=== PATIENT | female | born 1935 | race Caucasian/White ===

== ENCOUNTER 2023-01-31 09:36 | Inpatient (IN) | payer MEDICARE, OTHER ==
[~2023-01-31] VITALS: Ht 152.4 cm; Wt 59.0 kg
[2023-01-31] MEDS ORDERED: BLOOD SUGAR DIAGNOSTIC 1 EACH STRIP IN ONE (12:30)
[2023-01-31] MEDS ORDERED: MAG HYDROX/AL HYDROX/SIMETH 30 ML UDC PO PRN (12:30)
[2023-01-31] MEDS ORDERED: MAGNESIUM HYDROXIDE 30 ML UDC PO PRN (12:30)
[2023-01-31] MEDS ORDERED: TEMAZEPAM 7.5 MG CAPSULE PO PRN (12:30)
[2023-01-31] MEDS ORDERED: ACETAMINOPHEN 325 MG TABLET PO PRN (12:30)
[2023-01-31] MEDS ORDERED: DEXTROSE 50%-WATER 50 ML DISP.SYRIN IV PRN (13:00)
[2023-01-31] MEDS ORDERED: CELE100C PO (13:23)
[2023-01-31] MEDS ORDERED: RALO60TA14 PO (13:23)
[2023-01-31] MEDS ORDERED: GABA-532 PO (13:23)
[2023-01-31] MEDS ORDERED: ESOM20CA PO (13:23)
[2023-01-31] MEDS ORDERED: CHOL100043 PO (13:23)
[2023-01-31] MEDS ORDERED: SITA100T PO (13:23)
[2023-01-31] MEDS: clonazePAM 0.5 MG TABLET PO PRN (14:21)
[2023-01-31 16:00] VITALS: BP 100/69; TEMP 98.1; O2SAT 97
[2023-01-31] MEDS ORDERED: METOPROLOL PO (17:22)
[2023-01-31] MEDS ORDERED: [UNRECOGNIZED DRUG - OTHER] (17:23)
[2023-01-31] MEDS: BLOOD SUGAR DIAGNOSTIC 1 EACH STRIP IN SCH ×2 (17:23→21:52)
[2023-01-31] MEDS: INSULIN REGULAR, HUMAN 100 UNIT/ML 3 ML VIAL SQ PRN ×2 (17:26→21:59)
[2023-01-31] MEDS ORDERED: ACET325C7 PO (17:57)
[2023-01-31] MEDS ORDERED: ATOR40TA PO (17:57)
[2023-01-31 20:00] VITALS: BP 115/71; TEMP 98.2; O2SAT 98
[2023-01-31 21:37] VITALS: BP 115/71; TEMP 97.2; O2SAT 98
[2023-02-01 08:00] VITALS: BP 129/69; TEMP 97.9; O2SAT 98
[2023-02-01] MEDS: BLOOD SUGAR DIAGNOSTIC 1 EACH STRIP IN SCH ×4 (08:10→21:29)
[2023-02-01 08:17] LABS: CHOLESTEROL 157 mg/dL (<200); HDL CHOLESTEROL 51 mg/dL (40-60); LDL 83 mg/dL (0-99); TRIGLYCERIDES 179 mg/dL (30-150)
[2023-02-01 08:28] LABS: ALANINE AMINOTRANSFERASE 31 U/L (12-78); ALBUMIN 3.2 g/dL (3.4-5.0); ALKALINE PHOSPHATASE 87 U/L (46-116); ASPARTATE AMINOTRANSFERASE 24 U/L (15-37); BILIRUBIN,TOTAL 0.4 mg/dL (0.2-1.0); CALCIUM, SERUM 8.8 mg/dL (8.5-10.1); CARBON DIOXIDE 24 mmol/L (21-32); CHLORIDE 105 mmol/L (98-107); GLUCOSE 208 mg/dL (74-106); POTASSIUM 3.9 mmol/L (3.5-5.1); SODIUM SERUM 138 mmol/L (136-145); TOTAL PROTEIN, SERUM 6.8 g/dL (6.4-8.2); UREA NITROGEN, BLOOD 16 mg/dL (7-18)
[2023-02-01] MEDS: INSULIN REGULAR, HUMAN 100 UNIT/ML 3 ML VIAL SQ PRN ×3 (10:41→21:37)
[2023-02-01 16:00] VITALS: BP 144/76; TEMP 97.9; O2SAT 96
[2023-02-01] MEDS ORDERED: METFORMIN 500 MG TABLET PO SCH (17:00)
[2023-02-01] MEDS: CEPHALEXIN MONOHYDRATE 250 MG CAPSULE PO SCH ×2 (17:56→23:15)
[2023-02-01 20:00] VITALS: BP 142/71; TEMP 97.5; O2SAT 97
[2023-02-01] MEDS: clonazePAM 0.5 MG TABLET PO PRN (21:03)
[2023-02-01] MEDS: OLANZAPINE 2.5 MG TABLET PO SCH (21:09)
[2023-02-02] MEDS: CEPHALEXIN MONOHYDRATE 250 MG CAPSULE PO SCH ×3 (05:40→18:40)
[2023-02-02 08:00] VITALS: BP 110/59; TEMP 97.9; O2SAT 98
[2023-02-02] MEDS: BLOOD SUGAR DIAGNOSTIC 1 EACH STRIP IN SCH ×3 (08:14→21:55)
[2023-02-02] MEDS: INSULIN REGULAR, HUMAN 100 UNIT/ML 3 ML VIAL SQ PRN ×2 (08:37→21:47)
[2023-02-02 16:00] VITALS: BP 140/78; TEMP 98; O2SAT 96
[2023-02-02] MEDS: GABAPENTIN 100 MG CAPSULE PO SCH (18:40)
[2023-02-02 20:00] VITALS: BP 137/72; TEMP 97.8; O2SAT 96
[2023-02-02] MEDS: LINAGLIPTIN 5 MG TABLET PO SCH (21:14)
[2023-02-02] MEDS: ATORVASTATIN 40 MG TABLET PO SCH (21:16)
[2023-02-02] MEDS: OLANZAPINE 2.5 MG TABLET PO SCH (21:16)
[2023-02-02] MEDS: METOPROLOL TARTRATE 25 MG TABLET PO SCH (21:17)
[2023-02-03] MEDS: CEPHALEXIN MONOHYDRATE 250 MG CAPSULE PO SCH ×5 (00:24→23:38)
[2023-02-03] MEDS: BLOOD SUGAR DIAGNOSTIC 1 EACH STRIP IN SCH ×4 (07:52→21:41)
[2023-02-03] MEDS: INSULIN REGULAR, HUMAN 100 UNIT/ML 3 ML VIAL SQ PRN ×3 (07:55→21:45)
[2023-02-03 08:00] VITALS: BP 125/64; TEMP 97.6; O2SAT 97
[2023-02-03] MEDS: CHOLECALCIFEROL (VITAMIN D 3) 400 UNIT TABLET PO SCH (08:47)
[2023-02-03] MEDS: GABAPENTIN 100 MG CAPSULE PO SCH ×3 (08:47→17:17)
[2023-02-03] MEDS: RALOXIFENE 60 MG TABLET PO SCH (08:51)
[2023-02-03] MEDS: METOPROLOL TARTRATE 25 MG TABLET PO SCH ×2 (08:52→21:12)
[2023-02-03] MEDS: PANTOPRAZOLE 40 MG TABLET.DR PO SCH (12:15)
[2023-02-03 16:00] VITALS: BP 110/58; TEMP 97.8; O2SAT 100
[2023-02-03 20:00] VITALS: BP 134/71; TEMP 97.4; O2SAT 98
[2023-02-03] MEDS: OLANZAPINE 2.5 MG TABLET PO SCH (21:12)
[2023-02-03] MEDS: ATORVASTATIN 40 MG TABLET PO SCH (21:12)
[2023-02-03] MEDS: LINAGLIPTIN 5 MG TABLET PO SCH (21:12)
[2023-02-04] MEDS: CEPHALEXIN MONOHYDRATE 250 MG CAPSULE PO SCH ×4 (05:24→23:26)
[2023-02-04] MEDS: BLOOD SUGAR DIAGNOSTIC 1 EACH STRIP IN SCH ×5 (07:38→21:12)
[2023-02-04] MEDS: INSULIN REGULAR, HUMAN 100 UNIT/ML 3 ML VIAL SQ PRN ×4 (07:59→21:18)
[2023-02-04 08:00] VITALS: BP 146/55; TEMP 97.8; O2SAT 95
[2023-02-04] MEDS: CHOLECALCIFEROL (VITAMIN D 3) 400 UNIT TABLET PO SCH ×2 (08:49→08:56)
[2023-02-04] MEDS: GABAPENTIN 100 MG CAPSULE PO SCH ×3 (08:49→17:35)
[2023-02-04] MEDS: METOPROLOL TARTRATE 25 MG TABLET PO SCH ×2 (08:50→08:57)
[2023-02-04] MEDS: RALOXIFENE 60 MG TABLET PO SCH ×2 (08:54→08:56)
[2023-02-04] MEDS: PANTOPRAZOLE 40 MG TABLET.DR PO SCH (12:12)
[2023-02-04 16:00] VITALS: BP 113/57; TEMP 97.9; O2SAT 98
[2023-02-04] MEDS: ATORVASTATIN 40 MG TABLET PO SCH (21:07)
[2023-02-04] MEDS: OLANZAPINE 2.5 MG TABLET PO SCH (21:07)
[2023-02-04] MEDS: LINAGLIPTIN 5 MG TABLET PO SCH (21:07)
[2023-02-05] MEDS: CEPHALEXIN MONOHYDRATE 250 MG CAPSULE PO SCH ×3 (05:28→17:51)
[2023-02-05 08:00] VITALS: BP 135/64; TEMP 97.9; O2SAT 94
[2023-02-05] MEDS: INSULIN REGULAR, HUMAN 100 UNIT/ML 3 ML VIAL SQ PRN ×4 (08:16→21:55)
[2023-02-05] MEDS: BLOOD SUGAR DIAGNOSTIC 1 EACH STRIP IN SCH ×4 (08:18→22:12)
[2023-02-05] MEDS: GABAPENTIN 100 MG CAPSULE PO SCH ×3 (09:36→17:44)
[2023-02-05] MEDS: RALOXIFENE 60 MG TABLET PO SCH (09:36)
[2023-02-05] MEDS: CHOLECALCIFEROL (VITAMIN D 3) 400 UNIT TABLET PO SCH (09:36)
[2023-02-05] MEDS: METOPROLOL TARTRATE 25 MG TABLET PO SCH ×2 (09:37→21:15)
[2023-02-05] MEDS: PANTOPRAZOLE 40 MG TABLET.DR PO SCH (12:08)
[2023-02-05 15:50] VITALS: BP 115/62; TEMP 97.8; O2SAT 100
[2023-02-05 16:00] VITALS: BP 115/62; TEMP 97.8; O2SAT 100
[2023-02-05] MEDS: OLANZAPINE 2.5 MG TABLET PO SCH (21:14)
[2023-02-05] MEDS: ATORVASTATIN 40 MG TABLET PO SCH (21:14)
[2023-02-05] MEDS: LINAGLIPTIN 5 MG TABLET PO SCH (21:14)
[2023-02-06] MEDS: CEPHALEXIN MONOHYDRATE 250 MG CAPSULE PO SCH ×4 (00:46→17:10)
[2023-02-06] MEDS: BLOOD SUGAR DIAGNOSTIC 1 EACH STRIP IN SCH ×4 (07:32→21:32)
[2023-02-06] MEDS: INSULIN REGULAR, HUMAN 100 UNIT/ML 3 ML VIAL SQ PRN ×4 (07:37→21:36)
[2023-02-06 08:00] VITALS: BP 152/67; TEMP 97.9; O2SAT 99
[2023-02-06] MEDS: RALOXIFENE 60 MG TABLET PO SCH (08:14)
[2023-02-06] MEDS: GABAPENTIN 100 MG CAPSULE PO SCH ×3 (08:14→17:10)
[2023-02-06] MEDS: CHOLECALCIFEROL (VITAMIN D 3) 400 UNIT TABLET PO SCH (08:14)
[2023-02-06] MEDS: METOPROLOL TARTRATE 25 MG TABLET PO SCH ×2 (08:15→20:37)
[2023-02-06] MEDS: PANTOPRAZOLE 40 MG TABLET.DR PO SCH (12:08)
[2023-02-06 16:00] VITALS: BP 125/60; TEMP 97.9; O2SAT 95
[2023-02-06 20:40] VITALS: BP 141/64; TEMP 97.4; O2SAT 98
[2023-02-06] MEDS: ATORVASTATIN 40 MG TABLET PO SCH (21:03)
[2023-02-06] MEDS: LINAGLIPTIN 5 MG TABLET PO SCH (21:03)
[2023-02-06] MEDS: OLANZAPINE 2.5 MG TABLET PO SCH (21:03)
[2023-02-07] MEDS: CEPHALEXIN MONOHYDRATE 250 MG CAPSULE PO SCH ×4 (00:31→17:02)
[2023-02-07] MEDS: BLOOD SUGAR DIAGNOSTIC 1 EACH STRIP IN SCH ×4 (05:54→21:43)
[2023-02-07] MEDS: INSULIN REGULAR, HUMAN 100 UNIT/ML 3 ML VIAL SQ PRN ×5 (05:56→21:42)
[2023-02-07 08:00] VITALS: BP 130/60; TEMP 98.1; O2SAT 99
[2023-02-07] MEDS: CELECOXIB 100 MG CAPSULE PO PRN (08:29)
[2023-02-07] MEDS: CHOLECALCIFEROL (VITAMIN D 3) 400 UNIT TABLET PO SCH (08:29)
[2023-02-07] MEDS: RALOXIFENE 60 MG TABLET PO SCH (08:29)
[2023-02-07] MEDS: GABAPENTIN 100 MG CAPSULE PO SCH ×3 (08:29→16:51)
[2023-02-07] MEDS: METOPROLOL TARTRATE 25 MG TABLET PO SCH ×2 (08:30→21:08)
[2023-02-07] MEDS: PANTOPRAZOLE 40 MG TABLET.DR PO SCH (11:44)
[2023-02-07 16:00] VITALS: BP 106/43; TEMP 98.2; O2SAT 98
[2023-02-07 20:00] VITALS: BP 135/70; TEMP 98.1; O2SAT 100
[2023-02-07] MEDS: ATORVASTATIN 40 MG TABLET PO SCH (21:10)
[2023-02-07] MEDS: LINAGLIPTIN 5 MG TABLET PO SCH (21:10)
[2023-02-07] MEDS: OLANZAPINE 2.5 MG TABLET PO SCH (21:10)
[2023-02-08] MEDS: CEPHALEXIN MONOHYDRATE 250 MG CAPSULE PO SCH ×4 (01:06→17:08)
[2023-02-08] MEDS: BLOOD SUGAR DIAGNOSTIC 1 EACH STRIP IN SCH ×4 (07:46→21:46)
[2023-02-08] MEDS: INSULIN REGULAR, HUMAN 100 UNIT/ML 3 ML VIAL SQ PRN ×4 (07:51→22:10)
[2023-02-08 08:00] VITALS: BP 122/62; TEMP 97.8; O2SAT 98
[2023-02-08] MEDS: GABAPENTIN 100 MG CAPSULE PO SCH ×3 (08:06→16:34)
[2023-02-08] MEDS: CHOLECALCIFEROL (VITAMIN D 3) 400 UNIT TABLET PO SCH (08:06)
[2023-02-08] MEDS: CELECOXIB 100 MG CAPSULE PO PRN (08:06)
[2023-02-08] MEDS: RALOXIFENE 60 MG TABLET PO SCH (08:06)
[2023-02-08] MEDS: METOPROLOL TARTRATE 25 MG TABLET PO SCH ×2 (08:09→21:45)
[2023-02-08] MEDS: PANTOPRAZOLE 40 MG TABLET.DR PO SCH (11:35)
[2023-02-08 16:00] VITALS: BP 127/68; TEMP 98.2; O2SAT 98
[2023-02-08 20:00] VITALS: BP 138/70; TEMP 97.4; O2SAT 98
[2023-02-08] MEDS: OLANZAPINE 2.5 MG TABLET PO SCH (21:45)
[2023-02-08] MEDS: ATORVASTATIN 40 MG TABLET PO SCH (21:45)
[2023-02-08] MEDS: LINAGLIPTIN 5 MG TABLET PO SCH (21:45)
[2023-02-09] MEDS: BLOOD SUGAR DIAGNOSTIC 1 EACH STRIP IN SCH ×4 (07:06→21:31)
[2023-02-09] MEDS: INSULIN REGULAR, HUMAN 100 UNIT/ML 3 ML VIAL SQ PRN ×3 (07:15→17:45)
[2023-02-09 08:00] VITALS: BP 136/63; TEMP 97.7; O2SAT 96
[2023-02-09] MEDS: RALOXIFENE 60 MG TABLET PO SCH (08:44)
[2023-02-09] MEDS: CHOLECALCIFEROL (VITAMIN D 3) 400 UNIT TABLET PO SCH (08:44)
[2023-02-09] MEDS: GABAPENTIN 100 MG CAPSULE PO SCH ×3 (08:44→16:37)
[2023-02-09] MEDS: METOPROLOL TARTRATE 25 MG TABLET PO SCH ×2 (08:45→21:31)
[2023-02-09] MEDS: PANTOPRAZOLE 40 MG TABLET.DR PO SCH (12:14)
[2023-02-09 16:00] VITALS: BP 102/65; TEMP 97.8; O2SAT 100
[2023-02-09 20:00] VITALS: BP 126/75; TEMP 97.6; O2SAT 97
[2023-02-09] MEDS: ATORVASTATIN 40 MG TABLET PO SCH (21:30)
[2023-02-09] MEDS: LINAGLIPTIN 5 MG TABLET PO SCH (21:30)
[2023-02-09] MEDS: OLANZAPINE 2.5 MG TABLET PO SCH (21:30)
[2023-02-09] MEDS: *INSULIN REGULAR(HUMULIN R)HUM 100 UNIT/ML VIAL SQ PRN (22:18)
[2023-02-09] MEDS: INSULIN GLARGINE, 100 UNIT/ML CARTRIDGE SQ SCH (22:29)
[2023-02-10] MEDS: BLOOD SUGAR DIAGNOSTIC 1 EACH STRIP IN SCH ×4 (07:33→22:10)
[2023-02-10] MEDS: *INSULIN REGULAR(HUMULIN R)HUM 100 UNIT/ML VIAL SQ PRN ×4 (07:57→22:05)
[2023-02-10 08:00] VITALS: BP 131/81; TEMP 97.9; O2SAT 100
[2023-02-10] MEDS: RALOXIFENE 60 MG TABLET PO SCH (08:01)
[2023-02-10] MEDS: CELECOXIB 100 MG CAPSULE PO PRN (08:01)
[2023-02-10] MEDS: CHOLECALCIFEROL (VITAMIN D 3) 400 UNIT TABLET PO SCH (08:01)
[2023-02-10] MEDS: GABAPENTIN 100 MG CAPSULE PO SCH ×3 (08:01→16:37)
[2023-02-10] MEDS: METOPROLOL TARTRATE 25 MG TABLET PO SCH ×2 (08:02→22:10)
[2023-02-10] MEDS: PANTOPRAZOLE 40 MG TABLET.DR PO SCH (12:11)
[2023-02-10 16:00] VITALS: BP 117/62; TEMP 97.8; O2SAT 96
[2023-02-10] MEDS: INSULIN GLARGINE, 100 UNIT/ML CARTRIDGE SQ SCH (22:05)
[2023-02-10] MEDS: LINAGLIPTIN 5 MG TABLET PO SCH (22:08)
[2023-02-10] MEDS: OLANZAPINE 2.5 MG TABLET PO SCH (22:08)
[2023-02-10] MEDS: ATORVASTATIN 40 MG TABLET PO SCH (22:10)
[2023-02-11] MEDS: BLOOD SUGAR DIAGNOSTIC 1 EACH STRIP IN SCH (07:36)
[2023-02-11 08:00] VITALS: BP 128/77; TEMP 98; O2SAT 97
[2023-02-11] MEDS: INSULIN REGULAR, HUMAN 100 UNIT/ML 3 ML VIAL SQ PRN (08:09)
[2023-02-11 08:32] VITALS: BP 128/77
[2023-02-11] MEDS: METOPROLOL TARTRATE 25 MG TABLET PO SCH (08:32)
[2023-02-11] MEDS: GABAPENTIN 100 MG CAPSULE PO SCH (08:32)
[2023-02-11] MEDS: RALOXIFENE 60 MG TABLET PO SCH (08:32)
[2023-02-11] MEDS: CHOLECALCIFEROL (VITAMIN D 3) 400 UNIT TABLET PO SCH (08:32)
== END 2023-02-11 11:00 | disposition home or self-care (01) | DRG 885 ==
LOC: GPS 09:36
PROVIDERS: ADMIT Psychiatry & Neurology Psychiatry; ATTEND Nurse Practitioner Acute Care
DX: F29 Unspecified psychosis not due to a substance or known physiological condition (principal); E11.65 Type 2 diabetes mellitus with hyperglycemia; G92.9 Unspecified toxic encephalopathy; N39.0 Urinary tract infection, site not specified; F32.A Depression, unspecified; I10 Essential (primary) hypertension; Z79.84 Long term (current) use of oral hypoglycemic drugs; Z79.899 Other long term (current) drug therapy; R41.9 Unspecified symptoms and signs involving cognitive functions and awareness
CPT/HCPCS: 36415; 80053-TC; 80061-TC; 82962-TC; 97112-TC; 97116-TC; 97530-TC; J1815